=== PATIENT | male | born 1965 | race Caucasian/White ===

== ENCOUNTER → 2017-07-15 | Outpatient (CLI) | payer BC ==
[~2017-07-15] MED LIST: ASPEC325 PO; B-COTAB18 PO; CINN1CAP2 PO; COEN100C3 PO; CRANPOW PO; GING1CAP PO; GLUC1CAP33 PO; OMEG1360 PO
[2017-07-15 18:44] LABS: BASO % 0.1 %; BASO ABS # 0.02 K/uL (0-0.2); EOS % 0.3 %; EOS ABS # 0.04 K/uL (0-0.5); HEMATOCRIT 44.6 % (42-52); HEMOGLOBIN 15.7 g/dL (14.0-18.0); IG# 0.06 K/uL (0.00-0.02); LYMPH % 18.8 %; LYMPH ABS # 2.63 K/uL (1.2-3.4); MEAN CELL VOLUME 94.7 fL (80-100); MEAN CORPUSCULAR HEMOGLOBIN 33.3 pg (25-34); MEAN CORPUSCULAR HGB CONC 35.2 g/dl (32-36); MEAN PLATELET VOLUME 10.7 fL (7.4-10.4); MONO % 7.4 %; MONO ABS # 1.04 K/uL (0.11-0.59); PLATELET COUNT 285 K/uL (130-400); RED CELL DISTRIBUTION WIDTH SD 48.5 fL (36.4-46.3); WHITE BLOOD COUNT 13.99 K/uL (4.8-10.8)
[2017-07-17 01:19] LABS: RAPID PLASMA REAGIN NONREACTIVE (NONREACT)
[2017-07-17 22:32] LABS: ANA SCREEN TC 249X NEGATIVE (NEGATIVE)
== END | disposition home or self-care (01) ==
LOC: C.LAB 18:13
PROVIDERS: ATTEND Physician Assistant
DX: R21 Rash and other nonspecific skin eruption (principal)

== ENCOUNTER 2020-05-03 18:07 | Inpatient (IN) ==
[2020-05-03] MEDS ORDERED: SODIUM CHLORIDE 0.9% 1000ML 1,000 ML IV ONE (18:47)
[2020-05-03 19:27] LABS: Basophils # (auto) 0.05 K/uL (0-0.2); Basophils % (auto) 0.4 %; Eosinophils # (auto) 0.33 K/uL (0-0.5); Eosinophils % (auto) 2.5 %; Hematocrit (blood only) 44.6 % (42-52); Hemoglobin 15.6 g/dL (14.0-18.0); Immature Granulocytes # (auto) 0.15 K/uL (0.00-0.02); Immature Granulocytes % (auto) 1.2 %; Lymphocytes # (auto) 1.71 K/uL (1.2-3.4); Lymphocytes % (auto) 13.2 %; Mean Corpuscular Hemoglobin 33.4 pg (25-34); Mean Corpuscular Volume 95.5 fL (80-100); Mean Platelet Volume 10.8 fL (7.4-10.4); Monocytes # (auto) 1.25 K/uL (0.11-0.59); Monocytes % (auto) 9.6 %; Neutrophils % (auto) 73.1 %; Platelet Count 474 K/uL (130-400); RDW Coefficient of Variation 13.5 % (11.5-14.5); RDW Standard Deviation 47.1 fL (36.4-46.3); Red Blood Count 4.67 M/uL (4.7-6.1); White Blood Count 12.99 K/uL (4.8-10.8)
[2020-05-03 19:38] LABS: Partial Thromboplastin Time 27.1 Seconds (21.0-31.0); Prothrombin Time 10.8 Seconds (9.0-12.0)
[2020-05-03 19:58] LABS: Alanine Aminotransferase 92 U/L (12-78); Albumin Level 2.8 gm/dl (3.4-5.0); Aspartate Aminotransferase 46 U/L (15-37); BUN Creatinine Ratio 11.3 (10-20); Blood Urea Nitrogen 15 mg/dl (7-18); Calcium 8.8 mg/dl (8.5-10.1); Carbon Dioxide 28 mmol/L (21-32); Chloride 108 mmol/L (98-107); Creatinine Clr Calc Pharmacy 77.2 ml/min; Est GFR (African American) 72.4; Est GFR (Non-African American) 62.4; Glucose 109 mg/dl (70-99); Lipase 135 U/L (73-393); Potassium 4.2 mmol/L (3.5-5.1); Sodium 140 mmol/L (136-145)
[2020-05-03 20:04] LABS: Albumin Globulin Ratio 0.6 (0.9-2); Alkaline Phosphatase 123 U/L (45-117); Bilirubin,Total 0.5 mg/dl (0.2-1); Globulin 4.7 gm/dl (2.5-4.0); Influenza A virus by PCR Negative (Neg); Influenza B virus by PCR Negative (Neg); RSV by PCR Negative (Neg); Total Protein 7.5 gm/dl (6.4-8.2); Troponin I < 0.015 ng/ml (0-0.045)
[2020-05-03] MEDS ORDERED: OPTIRAY 320 125ml IV ONE (20:15)
[2020-05-03 20:18] LABS: SARS CoV2 RNA(COVID-19) InHosp POSITIVE (Negative)
--- NOTE | 2020-05-03 20:29 | CT Scan Report ---
CT angio chest PE protocol CT DOSE: 824.46 mGy.cm HISTORY: 54 years-old Male with dyspnea, hypoxia, tachycardia. Acute shortness of breath with hypox ia and tachycardia. COVID Positive. TECHNIQUE: Multiple CTA images of the chest were obtained after the intravenous administration of 120 ml Optiray 320. Coronal and sagittal MIPS were obtained from the axial data set and were submitted for review. All measurements were obtained according to NASCET criteria. A dose lowering technique w as utilized adhering to the principles of ALARA. COMPARISON: None. FINDINGS: CTA: Moderate cardiomegaly. No pericardial effusion. No thoracic aortic aneurysm or dissection. Patency of the imaged great vessels. Pulmonary arterial tree is opacified to the level of the subsegmental bran ches and demonstrates no filling defects to suggest thromboembolic disease. CT CHEST: Unremarkable thyroid. Enlarged paratracheal and hilar lymph nodes measure up to 1.3 cm. Trace pleural effusions. The inferior lung bases are not entirely imaged. Bilateral patchy groundglass and consoli dative opacities are noted within all lobes and segments bilaterally. No overt pulmonary edema. Centr al airways are patent. Hepatic steatosis. No acute process of the imaged upper abdomen. Unremarkable soft tissues. There is no acute fracture. IMPRESSION: 1. Cardiomegaly without evidence of pulmonary emboli. 2. Multilobar distribution of groundglass and consolidative opacities compatible with multifocal pneu monia. 3. Likely reactive mediastinal and hilar adenopathy. 4. Trace pleural effusions. 5. Hepatic steatosis. ACT 112: Negative or not required by law. The above report was generated using voice recognition software. It may contain grammatical, syntax o r spelling errors. Electronically signed by: Vahid Sheridan M.D. 05/03/2020 8:28 PM
[2020-05-03] MEDS ORDERED: DEXAMETHASONE SOD INJ 10 MG/ML VIAL PO ONE (21:00)
[2020-05-03] MEDS ORDERED: DOXYCYCLINE HYCLATE 100 MG CAP PO STA (21:00)
--- NOTE | 2020-05-03 21:40 | Emergency Department Note ---
History of Present Illness General Chief Complaint: Respiratory Problems Stated Complaint: SOB Time Seen by Provider: 05/03/20 18:21 Source: patient Mode of arrival: ambulatory Limitations: no limitations History of Present Illness Provider Complaint: shortness of breath and cough Onset (ago): week(s) (1) HPI Narrative: This 54-year-old male patient presents to the emergency department today for evaluation of shortness of breath. Patient states his son tested positive for COVID-19 on 04/17/2020. His then got sick and tested positive as well. Approximately 1 week ago, he developed body aches, chills, headaches, dry cough. The patient states he began feeling better, then his shortness of breath worsened yesterday. Patient states he is having difficulty ambulating to the bathroom. He borrowed a pulse ox from a neighbor and noted his oxygen dropping into the 80's with minimal ambulation and movement/position changes. He denies any associated pain. No chest pain. No hemoptysis or fever. He does not use oxygen at home. He is not a smoker. He denies any history of COPD or asthma. Patient denies history of PE. No calf pain or swelling. No recent travel. Related Data Home oxygen amount: none Home Medications Medication Instructions Recorded Confirmed Type ascorbic acid (vitamin C) 500 mg 500 mg PO BID tab 10/26/18 05/03/20 History tablet cinnamon bark 500 mg capsule 500 mg PO BID cap 10/27/18 05/03/20 History coenzyme Q10 100 mg capsule 100 mg PO BID cap 10/27/18 05/03/20 History vitamin E succinate 400 unit tablet 400 units PO BID tab 10/27/18 05/03/20 History Salma Root Tab 500 mg PO BID 05/03/20 05/03/20 History diclofenac sodium 75 mg PO BID PRN 05/03/20 05/03/20 History escitalopram oxalate 20 mg PO DAILY 05/03/20 05/03/20 History gabapentin [Neurontin] 600 mg PO HS 05/03/20 05/03/20 History grape seed extract 150 mg PO BID 05/03/20 05/03/20 History lisdexamfetamine [Vyvanse] 60 mg PO DAILY 05/03/20 05/03/20 History vitamin B complex [B Complex] 1 tab PO BID 05/03/20 05/03/20 History Allergies Allergy/AdvReac Type Severity Reaction Status Date / Time codeine AdvReac Unknown GI SYMPTOMS Verified 05/03/20 19:08 Past Med/Surg History Medical History Chronic neck pain Surgical History (Updated 10/26/18 @ 08:11 by Magdiel London) H/O hernia repair History of knee surgery Family History (Updated 10/26/18 @ 08:14 by Magdiel London) Mother Depression Seizures Anxiety Sister Depression Father Hypertension Diabetes Prostate cancer Family/Other Myocardial infarction Social History Smoking Status: Never smoker Hx Alcohol Use: Yes Hx Substance Use: No Communication Ability: Effective Visual Impairment: No Limitations 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: No marital status: Current Living Situation: Spouse and Family current occupational status: employed Feels Safe at Home: Yes Physical Activity Frequency: 1-2 Times per Week Review of Systems A total of 10 systems reviewed and were otherwise negative Physical Exam Vital Signs: Vital Signs - 24 hr 05/03/20 18:12 05/03/20 18:23 05/03/20 18:59 Temperature 36.6 C Temperature Source Temporal Artery Sc an Pulse Rate 122 H 106 H Pulse Rate from Sp O2 Sensor 104 H Pulse Rhythm Respiratory Rate 24 17 Blood Pressure 157/76 H 147/99 H Blood Pressure Yeny n 103 115 Pulse Oximetry 92 88 L 96 Oxygen Delivery Me thod Room Air Room Air Nasal Can nula Nasal Cannula Oxygen Flow Rate 0 2 Sepsis Recent Feve r Within 48 Hours No Sepsis New/Unexpla ined Change in Men jordyn Status N/A Sepsis Action Take n by Nursing No Action Required Oxygen Flow Rate - Titration 2 Pulse Oximetry Pos t Tiitration 95 05/03/20 19:07 05/03/20 19:30 05/03/20 20:00 Temperature Temperature Source Pulse Rate 102 H 95 H 88 Pulse Rate from Sp O2 Sensor 93 H 89 Pulse Rhythm Regular Respiratory Rate 18 16 15 Blood Pressure 160/104 H 158/110 H Blood Pressure Yeny n 122 126 Pulse Oximetry 99 95 96 Oxygen Delivery Me thod Nasal Cannula Nasal Cannula Nasal Cannula Oxygen Flow Rate 2 2 2 Sepsis Recent Feve r Within 48 Hours Sepsis New/Unexpla ined Change in Men jordyn Status Sepsis Action Take n by Nursing Oxygen Flow Rate - Titration Pulse Oximetry Pos t Tiitration 05/03/20 20:30 Temperature Temperature Source Pulse Rate 89 Pulse Rate from Sp O2 Sensor 88 Pulse Rhythm Respiratory Rate 16 Blood Pressure 158/114 H Blood Pressure Yeny n 128 Pulse Oximetry 93 Oxygen Delivery Me thod Nasal Cannula Oxygen Flow Rate 2 Sepsis Recent Feve r Within 48 Hours Sepsis New/Unexpla ined Change in Men jordyn Status Sepsis Action Take n by Nursing Oxygen Flow Rate - Titration Pulse Oximetry Pos t Tiitration Physical Exam: PHYSICAL EXAM: VITALS: Blood Pressure 158/114, P 89, R 16, T 36.6C, O2 sat 88% on RA GENERAL: Well appearing, in no acute distress. Non-diaphoretic, well-developed, well-nourished. SKIN: No rashes, erythema, edema, or bruising. Good cap refill. HEAD: Normocephalic atraumatic. EYES: Conjunctivae without injection, sclerae without icterus. NECK: Supple without nuchal rigidity. No lymphadenopathy. LUNGS: Pt. able to speak in full sentences without difficulty. No apparent distress. No retractions or accessory muscle use. MUSCULOSKELETAL: Full range of motion without joint tenderness in all extremities. Normal gait. NEURO: Patient was alert and oriented to person place and time. No focal neurological deficits. Course Course The patient was seen and evaluated as above. An order was placed for continuous cardiac monitoring. The monitor shows a sinus tachycardia at a rate of 105 bpm. IV access obtained, labs drawn. Patient medicated with IV fluids. Imaging performed and reviewed by myself and radiologist as noted. Labs reviewed by myself. I discussed the findings with the patient via phone due to COVID-19 precautions. Plan to discharge the patient home with home O2 and Covid kit, however after discussion with the human services manager, noted that this is unavailable after hours due to limited ability to obtain home oxygen. [facility] the [facility] Please see his dictation regarding ongoing management of this patient. Administered Medications Discontinued Medications Sodium Chloride (Nss 1000ml) 1,000 mls @ 999 mls/hr IV .Q1H1M ONE Stop: 05/03/20 19:47 Last Infusion: 05/03/20 20:19 Dose: 0 mls/hr Documented by: [id number] Admin: 05/03/20 19:13 Dose: 999 mls/hr Documented by: [id number] Ioversol (Optiray 320 125ml) 120 ml IV ONCE ONE Stop: 05/03/20 20:16 Last Admin: 05/03/20 20:16 Dose: 120 ml Documented by: [id number] Medical Decision Making Differential Diagnosis + acute exacerbation of chronic obstructive airways disease, + congestive heart failure, + community acquired pneumonia, + asthma with exacerbation, + pulmonary embolism, + bronchitis, + pneumothorax, + pleural effusion, + ACS and + aspiration In addition to the above, COVID-19 was considered. Medical Records Attestation: I reviewed the patient's medical records. Home Medications Current Medication List: was personally reviewed by me Laboratory Data Attestation: I reviewed the patient's lab results. Mild leukocytosis of 12.99. No anemia or thrombocytopenia. Platelet count mildly elevated at 474,000. Renal, hepatic function and electrolytes without significant abnormality troponin negative. Lipase 135. Covid testing positive. Influenza, RSV testing negative. Result diagrams: 05/03/20 19:15 05/03/20 19:15 Lab Results 05/03/20 05/03/20 05/03/20 Range/Units 19:15 19:15 19:15 WBC 12.99 H (4.8-10.8) K/uL RBC 4.67 L (4.7-6.1) M/uL Hgb 15.6 (14.0-18.0) g/dL Hct 44.6 (42-52) % MCV 95.5 (80-100) fL MCH 33.4 (25-34) pg MCHC 35.0 (32-36) g/dL RDW Std Deviation 47.1 H (36.4-46.3) fL RDW Coeff of Angela 13.5 (11.5-14.5) % Plt Count 474 H (130-400) K/uL MPV 10.8 H (7.4-10.4) fL Immature Gran % (Auto) 1.2 % Neut % (Auto) 73.1 % Lymph % (Auto) 13.2 % [place] % (Auto) 9.6 % Eos % (Auto) 2.5 % Baso % (Auto) 0.4 % Neut # (Auto) 9.50 H (1.4-6.5) K/uL Lymph # (Auto) 1.71 (1.2-3.4) K/uL [place] # (Auto) 1.25 H (0.11-0.59) K/uL Eos # (Auto) 0.33 (0-0.5) K/uL Baso # (Auto) 0.05 (0-0.2) K/uL Immature Gran # (Auto) 0.15 H (0.00-0.02) K/uL PT 10.8 (9.0-12.0) Seconds INR 1.0 (0.9-1.1) APTT 27.1 (21.0-31.0) Seconds PTT Ratio 1.0 Sodium 140 (136-145) mmol/L Potassium 4.2 (3.5-5.1) mmol/L Chloride 108 H (98-107) mmol/L Carbon Dioxide 28 (21-32) mmol/L Anion Gap 4.0 (3-11) BUN 15 (7-18) mg/dl Creatinine 1.29 (0.6-1.4) mg/dl Est Cr Clr Drug Dosing 77.2 ml/min Est GFR ( Amer) 72.4 Est GFR (Non-Af Amer) 62.4 BUN/Creatinine Ratio 11.3 (10-20) Glucose 109 H (70-99) mg/dl Calcium 8.8 (8.5-10.1) mg/dl Total Bilirubin 0.5 (0.2-1) mg/dl AST 46 H (15-37) U/L ALT 92 H (12-78) U/L Alkaline Phosphatase 123 H (45-117) U/L Troponin I < 0.015 (0-0.045) ng/ml Total Protein 7.5 (6.4-8.2) gm/dl Albumin 2.8 L (3.4-5.0) gm/dl Globulin 4.7 H (2.5-4.0) gm/dl Albumin/Globulin Ratio 0.6 L (0.9-2) Lipase 135 (73-393) U/L COVID-19 Eval Order SARS-CoV-2 (PCR) (Negative) Influenza Type A (PCR) (Neg) Influenza Type B (PCR) (Neg) RSV (RT-PCR) (Neg) 05/03/20 05/03/20 Range/Units 19:15 19:15 WBC (4.8-10.8) K/uL RBC (4.7-6.1) M/uL Hgb (14.0-18.0) g/dL Hct (42-52) % MCV (80-100) fL MCH (25-34) pg MCHC (32-36) g/dL RDW Std Deviation (36.4-46.3) fL RDW Coeff of Angela (11.5-14.5) % Plt Count (130-400) K/uL MPV (7.4-10.4) fL Immature Gran % (Auto) % Neut % (Auto) % Lymph % (Auto) % [place] % (Auto) % Eos % (Auto) % Baso % (Auto) % Neut # (Auto) (1.4-6.5) K/uL Lymph # (Auto) (1.2-3.4) K/uL [place] # (Auto) (0.11-0.59) K/uL Eos # (Auto) (0-0.5) K/uL Baso # (Auto) (0-0.2) K/uL Immature Gran # (Auto) (0.00-0.02) K/uL PT (9.0-12.0) Seconds INR (0.9-1.1) APTT (21.0-31.0) Seconds PTT Ratio Sodium (136-145) mmol/L Potassium (3.5-5.1) mmol/L Chloride (98-107) mmol/L Carbon Dioxide (21-32) mmol/L Anion Gap (3-11) BUN (7-18) mg/dl Creatinine (0.6-1.4) mg/dl Est Cr Clr Drug Dosing ml/min Est GFR ( Amer) Est GFR (Non-Af Amer) BUN/Creatinine Ratio (10-20) Glucose (70-99) mg/dl Calcium (8.5-10.1) mg/dl Total Bilirubin (0.2-1) mg/dl AST (15-37) U/L ALT (12-78) U/L Alkaline Phosphatase (45-117) U/L Troponin I (0-0.045) ng/ml Total Protein (6.4-8.2) gm/dl Albumin (3.4-5.0) gm/dl Globulin (2.5-4.0) gm/dl Albumin/Globulin Ratio (0.9-2) Lipase (73-393) U/L COVID-19 Eval Order CovFluRsv at [facility] SARS-CoV-2 (PCR) POSITIVE A* (Negative) Influenza Type A (PCR) Negative (Neg) Influenza Type B (PCR) Negative (Neg) RSV (RT-PCR) Negative (Neg) Imaging Data Radiologist's Impression: CT angio chest PE protocol CT DOSE: 824.46 mGy.cm HISTORY: 54 years-old Male with dyspnea, hypoxia, tachycardia. Acute shortness of breath with hypoxia and tachycardia. COVID Positive. TECHNIQUE: Multiple CTA images of the chest were obtained after the intravenous administration of 120 ml Optiray 320. Coronal and sagittal MIPS were obtained from the axial data set and were submitted for review. All measurements were obtained according to NASCET criteria. A dose lowering technique was utilized adhering to the principles of ALARA. COMPARISON: None. FINDINGS: CTA: Moderate cardiomegaly. No pericardial effusion. No thoracic aortic aneurysm or dissection. Patency of the imaged great vessels. Pulmonary arterial tree is opacified to the level of the subsegmental branches and demonstrates no filling defects to suggest thromboembolic disease. CT CHEST: Unremarkable thyroid. Enlarged paratracheal and hilar lymph nodes measure up to 1.3 cm. Trace pleural effusions. The inferior lung bases are not entirely imaged. Bilateral patchy groundglass and consolidative opacities are noted within all lobes and segments bilaterally. No overt pulmonary edema. Central airways are patent. Hepatic steatosis. No acute process of the imaged upper abdomen. Unremarkable soft tissues. There is no acute fracture. IMPRESSION: 1. Cardiomegaly without evidence of pulmonary emboli. 2. Multilobar distribution of groundglass and consolidative opacities compatible with multifocal pneumonia. 3. Likely reactive mediastinal and hilar adenopathy. 4. Trace pleural effusions. 5. Hepatic steatosis. ACT 112: Negative or not required by law. The above report was generated using voice recognition software. It may contain grammatical, syntax or spelling errors. Electronically signed by: Vahid Sheridan M.D. 05/03/2020 8:28 PM ECG Data Attestation: I personally reviewed and interpreted this ECG as follows: Prior ECG tracings: available for review (02/15/1996) Interpretation: Sinus tachycardia with ventricular rate of [address] elevation or depression. No T wave inversion. When compared to previous EKG, PVCs no longer present. Blood Pressure Blood Pressure Findings: Elevated blood pressure Blood Pressure Disposition: further management by hospitalist MDM Narrative This 54 year old male patient presents to the emergency department today for evaluation of shortness of breath. His family members have tested positive for COVID-19. He developed symptoms approximately 1 week ago and shortness of breath significantly worsened over the past few days. The patient generally appears well, but is requiring oxygen with only minimal activity and position changes. He does have a mild leukocytosis. CT imaging to rule out PE completed and negative for PE, though with multilobar distribution of groundglass and consolidative opacities, consistent with multifocal pneumonia and COVID-19. COVID-19 testing is positive. We did discuss the potential for discharge home with home oxygen, Decadron, and doxycycline in case of secondary bacterial infection, though were unable to obtain oxygen for the patient at home. He will be admitted to the medicine service for ongoing management of his shortness of breath, hypoxia, and Covid pneumonia. Please see hospitalist dictation regarding ongoing management care of this patient. The chart was completed utilizing [employer] Speech voice recognition software. Grammatical errors, random word insertions, pronoun errors, and incomplete sentences are an occasional consequence of this system due to software limitations, ambient noise, and hardware issues. Any formal questions or con cerns about the content, text, or information contained within the body of this dictation should be directly addressed to the provider for clarification. Impression & Plan COVID-19, Pneumonia, Hypoxia Discharge Plan Visit Data Chief Complaint: Respiratory Problems Stated Complaint: SOB ED Provider: Daren Francis ED Midlevel Provider: Elaine Moss Discharge Problem: COVID-19, Pneumonia, Hypoxia Patient Disposition: Admitted As Inpatient Forms Stand Alone Forms: [facility] Emergency Department, Important Visit Information Prescriptions Prescriptions: No Action ascorbic acid (vitamin C) 500 mg tablet 500 mg PO BID RF: 0 coenzyme Q10 100 mg capsule 100 mg PO BID RF: 0 vitamin E succinate 400 unit tablet 400 units PO BID RF: 0 cinnamon bark [Cinnamon] 500 mg capsule 500 mg PO BID RF: 0 B Complex Tablet Extended Release 1 tab PO BID RF: 0 Salma Root Tab 500 mg PO BID RF: 0 gabapentin [Neurontin] 300 mg capsule 600 mg PO HS RF: 0 diclofenac sodium 75 mg tablet,delayed release (DR/EC) 75 mg PO BID PRN (Reason: Pain) RF: 0 grape seed extract 50 mg Capsule 150 mg PO BID RF: 0 escitalopram oxalate 20 mg tablet 20 mg PO DAILY RF: 0 Vyvanse 60 mg capsule 60 mg PO DAILY RF: 0 Referrals Referrals: PCP,NO [Primary Care Provider] -
--- NOTE | 2020-05-03 23:05 | History & Physical Report ---
Date of Service May 03, 2020 Assessment & Plan (1) Pneumonia due to COVID-19 virus: Multifocal pneumonia due to COVID-19 virus with hypoxia- Likely has an element of secondary bacterial infection. Dexamethasone 6 mg IV every morning Ventolin HFA 2 puffs 4 times daily, and every 2 hours as needed Remdesivir IV per protocol Ceftriaxone 2g IV daily Azithromycin 500 mg IV daily Nasal cannula oxygen, titrate to keep pulse ox 94 to 95% Patient with history of 5 previous cases of bacterial pneumonia. Present on Admission?: Yes (2) Hypoxia: See above Present on Admission?: Yes (3) Multifocal pneumonia: See above Present on Admission?: Yes (4) Hepatic steatosis: AST 46 and ALT 92 upon admission. Follow serially Present on Admission?: Yes (5) Anxiety and depression: Continue Lexapro 20 mg p.o. daily, Vyvanse, and gabapentin 600 mg at bedtime Present on Admission?: Yes History of Present Illness Chief Complaint: The patient presents to the emergency department with complaint of generalized fatigue and weakness, body aches, chills, headaches and worsening of his chronic dry cough worsening over the past 4 to 5 days. Primary Care Provider: NO PCP The patient is a 54-year-old male with a past medical history including depression, and anxiety, who presents with the symptoms above. He reports that his son was initially tested positive for COVID-19 on 04/17/2020, his developed symptoms and tested positive several days later, and then he developed symptoms as noted above. Work-up in the emergency department included the following abnormal labor atories: AST 46, ALT 92, albumin 2.8, WBC 12.99, platelets 474, and COVID-[address] angiography was significant for multifocal pneumonia and fatty liver. Patient was noted to be hypoxic, with room air pulse ox 88% upon arrival. Allergies Allergy/AdvReac Type Severity Reaction Status Date / Time codeine AdvReac Unknown GI SYMPTOMS Verified 05/03/20 19:08 Home Medications Medication Instructions Recorded Confirmed Type ascorbic acid (vitamin C) 500 mg 500 mg PO BID tab 10/26/18 05/03/20 History tablet cinnamon bark 500 mg capsule 500 mg PO BID cap 10/27/18 05/03/20 History coenzyme Q10 100 mg capsule 100 mg PO BID cap 10/27/18 05/03/20 History vitamin E succinate 400 unit tablet 400 units PO BID tab 10/27/18 05/03/20 History Salma Root Tab 500 mg PO BID 05/03/20 05/03/20 History diclofenac sodium 75 mg PO BID PRN 05/03/20 05/03/20 History escitalopram oxalate 20 mg PO DAILY 05/03/20 05/03/20 History gabapentin [Neurontin] 600 mg PO HS 05/03/20 05/03/20 History grape seed extract 150 mg PO BID 05/03/20 05/03/20 History lisdexamfetamine [Vyvanse] 60 mg PO DAILY 05/03/20 05/03/20 History vitamin B complex [B Complex] 1 tab PO BID 05/03/20 05/03/20 History Past Med/Surg History Medical History Chronic neck pain Surgical History (Updated 10/26/18 @ 08:11 by Magdiel London) H/O hernia repair History of knee surgery Family History (Updated 10/26/18 @ 08:14 by Magdiel London) Mother Depression Seizures Anxiety Sister Depression Father Hypertension Diabetes Prostate cancer Family/Other Myocardial infarction Social History Smoking Status: Never smoker Do You Dip or Chew Tobacco: No; Hx Alcohol Use: No Hx Substance Use: No Preferred Language: Gambian Communication Ability: Effective Visual Impairment: No Limitations Retouching Operator Required: No Beliefs That Will Affect Care: None marital status: Current Living Situation: Spouse current occupational status: employed Feels Safe at Home: Yes Physical Activity Frequency: 1-2 Times per Week Assistive Devices: CPAP and Glasses Review of Systems Review of Systems: The patient denies chest pain, palpitations, lower extremity swelling, sweats, weight change, nausea, vomiting, diarrhea , constipation, abdominal pain, pelvic pain, blood in urine or stool, dysuria, urinary frequency or urgency, lightheadedness, dizziness, memory loss, loss of consciousness, rash, abnormal bruising or bleeding, imbalance, focal weakness, numbness or tingling in arms or legs, back or neck pain, or night sweats. The review of systems is otherwise negative other than for that already noted above, and at least 10 systems have been reviewed. Physical Exam Physical Exam: The patient is awake, alert and oriented 3, well developed and well nourished, normocephalic and atraumatic, lying in bed and in no acute distress. HEENT--PERRL, EOMI, mucous membranes and oropharynx normal. Neck--supple. No JVD. No bruits. Thyroid normal, trachea midline, no adenopathy. Heart--normal S1 and S2. No murmurs, rubs or gallops. Lungs--coarse breath sounds bilaterally. No respiratory distress, no accessory muscle use. Abdomen--normal bowel sounds and soft. Nontender. Nondistended, no hernias or masses, no organomegaly. Extremities--no cyanosis or clubbing. No edema. Dermatologic--normal skin turgor, normal color, no abnormal lymph nodes, no rash. Neurologic--cranial nerves II through XII grossly intact. Rheumatologic--normal range of motion. Psychiatric--normal affect. Results & Data Results & Data ([facility]) Vital Signs (Past 12 Hours) Vital Signs Temp Pulse Resp BP Pulse Ox 05/03/20 22:30 89 16 164/116 H 97 05/03/20 22:00 94 H 16 169/119 H 95 05/03/20 21:31 87 17 95 05/03/20 21:30 87 15 140/104 H 96 05/03/20 21:00 91 H 15 147/102 H 91 05/03/20 20:54 90 16 146/101 H 91 05/03/20 20:30 89 16 158/114 H 93 05/03/20 20:00 88 15 158/110 H 96 05/03/20 19:30 95 H 16 160/104 H 95 05/03/20 19:07 102 H 18 99 05/03/20 18:59 106 H 17 147/99 H 96 05/03/20 18:23 88 L 05/03/20 18:12 97.9 F 122 H 24 157/76 H 92 Laboratory Results Laboratory Results WBC 12.99 K/uL (4.8-10.8) H 05/03/20 19:15 RBC 4.67 M/uL (4.7-6.1) L 05/03/20 19:15 Hgb 15.6 g/dL (14.0-18.0) 05/03/20 19:15 Hct 44.6 % (42-52) 05/03/20 19:15 MCV 95.5 fL (80-100) 05/03/20 19:15 MCH 33.4 pg (25-34) 05/03/20 19:15 MCHC 35.0 g/dL (32-36) 05/03/20 19:15 RDW Std Deviation 47.1 fL (36.4-46.3) H 05/03/20 19:15 RDW Coeff of Angela 13.5 % (11.5-14.5) 05/03/20 19:15 Plt Count 474 K/uL (130-400) H 05/03/20 19:15 MPV 10.8 fL (7.4-10.4) H 05/03/20 19:15 Immature Gran % (Auto) 1.2 % 05/03/20 19:15 Neut % (Auto) 73.1 % 05/03/20 19:15 Lymph % (Auto) 13.2 % 05/03/20 19:15 Benton % (Auto) 9.6 % 05/03/20 19:15 Eos % (Auto) 2.5 % 05/03/20 19:15 Baso % (Auto) 0.4 % 05/03/20 19:15 Neut # (Auto) 9.50 K/uL (1.4-6.5) H 05/03/20 19:15 Lymph # (Auto) 1.71 K/uL (1.2-3.4) 05/03/20 19:15 Benton # (Auto) 1.25 K/uL (0.11-0.59) H 05/03/20 19:15 Eos # (Auto) 0.33 K/uL (0-0.5) 05/03/20 19:15 Baso # (Auto) 0.05 K/uL (0-0.2) 05/03/20 19:15 Immature Gran # (Auto) 0.15 K/uL (0.00-0.02) H 05/03/20 19:15 PT 10.8 Seconds (9.0-12.0) 05/03/20 19:15 INR 1.0 (0.9-1.1) 05/03/20 19:15 APTT 27.1 Seconds (21.0-31.0) 05/03/20 19:15 PTT Ratio 1.0 05/03/20 19:15 Sodium 140 mmol/L (136-145) 05/03/20 19:15 Potassium 4.2 mmol/L (3.5-5.1) 05/03/20 19:15 Chloride 108 mmol/L (98-107) H 05/03/20 19:15 Carbon Dioxide 28 mmol/L (21-32) 05/03/20 19:15 Anion Gap 4.0 (3-11) 05/03/20 19:15 BUN 15 mg/dl (7-18) 05/03/20 19:15 Creatinine 1.29 mg/dl (0.6-1.4) 05/03/20 19:15 Est Cr Clr Drug Dosing 77.2 ml/min 05/03/20 19:15 Est GFR ( Amer) 72.4 05/03/20 19:15 Est GFR (Non-Af Amer) 62.4 05/03/20 19:15 BUN/Creatinine Ratio 11.3 (10-20) 05/03/20 19:15 Glucose 109 mg/dl (70-99) H 05/03/20 19:15 Calcium 8.8 mg/dl (8.5-10.1) 05/03/20 19:15 Total Bilirubin 0.5 mg/dl (0.2-1) 05/03/20 19:15 AST 46 U/L (15-37) H 05/03/20 19:15 ALT 92 U/L (12-78) H 05/03/20 19:15 Alkaline Phosphatase 123 U/L (45-117) H 05/03/20 19:15 Troponin I < 0.015 ng/ml (0-0.045) 05/03/20 19:15 Total Protein 7.5 gm/dl (6.4-8.2) 05/03/20 19:15 Albumin 2.8 gm/dl (3.4-5.0) L 05/03/20 19:15 Globulin 4.7 gm/dl (2.5-4.0) H 05/03/20 19:15 Albumin/Globulin Ratio 0.6 (0.9-2) L 05/03/20 19:15 Lipase 135 U/L (73-393) 05/03/20 19:15 COVID-19 Eval Order CovFluRsv at [facility] 05/03/20 19:15 SARS-CoV-2 (PCR) POSITIVE (Negative) A* 05/03/20 19:15 Influenza Type A (PCR) Negative (Neg) 05/03/20 19:15 Influenza Type B (PCR) Negative (Neg) 05/03/20 19:15 RSV (RT-PCR) Negative (Neg) 05/03/20 19:15 Diagnostic Findings [facility], [id number] CT Scan Report Patient: CACHORRO MOREJON Date: 05/03/20MR#: [id number]: 51 JUSTIN MCLAUGHLINAcckaty ID:[id number]: Date: 1965ty Zip: [place] [id number]: 54Location: EDSex: MRoom/Bed:Att Phy:Diagnosis: SOBPri Phy: PCP,NOService Date: 05/03/20Fa Phy:Interpreting Phy: Kyree SheridanAdmit Phy: Ordering Phy: Elaine Moss PA-C cc: ~ CT angio chest PE protocol CT DOSE: 824.46 mGy.cm HISTORY: 54 years-old Male with dyspnea, hypoxia, tachycardia. Acute shortness of breath with hypoxia and tachycardia. COVID Positive. TECHNIQUE: Multiple CTA images of the chest were obtained after the intravenous administration of 120 ml Optiray 320. Coronal and sagittal MIPS were obtained from the axial data set and were submitted for review. All measurements were obtained according to NASCET criteria. A dose lowering technique was utilized adhering to the principles of ALARA. COMPARISON: None. FINDINGS: CTA: Moderate cardiomegaly. No pericardial effusion. No thoracic aortic aneurysm or dissection. Patency of the imaged great vessels. Pulmonary arterial tree is opacified to the level of the subsegmental branches and demonstrates no filling defects to suggest thromboembolic disease. CT CHEST: Unremarkable thyroid. Enlarged paratracheal and hilar lymph nodes measure up to 1.3 cm. Trace pleural effusions. The inferior lung bases are not entirely imaged. Bilateral patchy groundglass and consolidative opacities are noted within all lobes and segments bilaterally. No overt pulmonary edema. Central airways are patent. Hepatic steatosis. No acute process of the imaged upper abdomen. Unremarkable soft tissues. There is no acute fracture. IMPRESSION: 1. Cardiomegaly without evidence of pulmonary emboli. 2. Multilobar distribution of groundglass and consolidative opacities compatible with multifocal pneumonia. 3. Likely reactive mediastinal and hilar adenopathy. 4. Trace pleural effusions. 5. Hepatic steatosis. ACT 112: Negative or not required by law. The above report was generated using voice recognition software. It may contain grammatical, syntax or spelling errors. Electronically signed by: Vahid Sheridan M.D. 05/03/2020 8:28 PM Dictated: 05/03/202021Transcribed: 05/03/202021 Code Status & VTE Plan Code Status Full code VTE Prophylaxis Plan VTE Prophylaxis will be ordered: Yes PG Care Time/CCT Total # of Minutes Spent Total Time Spent with Patient: Total time spent is greater than 50% in coordination of care (as documented) at patient's floor/unit and/or counseling patient: Coding Level of Care Code 58019 Initial Inpt Care Lvl 3 Diagnoses Pneumonia due to COVID-19 virus U07.1; J12.82 Hypoxia R09.02 Multifocal pneumonia J18.9 Hepatic steatosis K76.0 Anxiety and depression F41.9; F32.9
[2020-05-04] MEDS ORDERED: DEXAMETHASONE SOD INJ 10 MG/ML VIAL IV ONE (00:36)
[2020-05-04] MEDS ORDERED: NON-FORMULARY MEDICATION (Coenzyme Q10 100 mg capsule) PO SCH (00:36)
[2020-05-04] MEDS ORDERED: ONDANSETRON INJ 2 MG/ML 2 ML VIAL IV PRN (00:36)
[2020-05-04] MEDS ORDERED: ACETAMINOPHEN 325 MG TAB PO PRN (00:36)
[2020-05-04] MEDS ORDERED: dexAMETHasone 6 MG in SYRINGE 0 ML IV ONE (01:30)
[2020-05-04] MEDS ORDERED: REMDESIVIR 200 MG in SODIUM CHLORIDE 0.9% 210 ML IV ONE (01:30)
[2020-05-04] MEDS: ASCORBIC ACID 500 MG TAB PO SCH ×3 (02:01→20:15)
[2020-05-04] MEDS: SODIUM CHLORIDE 0.9% 10ML FLUSH IV SCH (02:02)
[2020-05-04 03:49] LABS: Appearance Urine Clear (Clear); Bilirubin Urine Negative (Negative); Blood Urine Negative (Negative); Color Urine Yellow; Glucose Urine UA Negative (Negative); Ketones Urine Trace (Negative); Leukocyte Esterase Urine Negative (Negative); Nitrite Urine Negative (Negative); Protein Urine Negative (Negative); Specific Gravity Urine > 1.045 (1.000-1.030); Urobilinogen Urine Negative (Negative); pH Urine 5.5 (4.5-7.5)
[2020-05-04] MEDS: ALBUTEROL HFA 8 GM INHALER INH SCH ×4 (07:21→19:24)
[2020-05-04] MEDS: cefTRIAXone SODIUM 2,000 MG in DEXTROSE 5% 50 ML IV SCH (08:54)
[2020-05-04] MEDS: dexAMETHasone 6 MG in SYRINGE 0 ML IV SCH (08:57)
[2020-05-04] MEDS: VITAMIN B COMPLEX TAB PO SCH ×2 (08:58→20:15)
[2020-05-04] MEDS ORDERED: ENOXAPARIN INJ 60 MG/0.6 ML SYR SQ SCH (09:00)
[2020-05-04] MEDS ORDERED: ESCITALOPRAM OXALATE 20 MG TAB PO SCH (09:00)
[2020-05-04] MEDS: AZITHROMYCIN 500 MG in DEXTROSE 5% 250 ML IV SCH (09:04)
[2020-05-04] MEDS ORDERED: Nursing to Pharmacy Communication SCH (09:30)
--- NOTE | 2020-05-04 16:07 | Hospitalist Progress Note ---
Date of Service May 04, 2020 Assessment & Plan (1) Pneumonia due to COVID-19 virus: Multifocal pneumonia due to COVID-19 virus with hypoxia. Likely has an element of secondary bacterial infection. First symptoms were ~04/24/2020. - Continue dexamethasone 6 mg IV every morning (End date: 05/12/2020). - Continue remdesivir IV per protocol - Defer convalescent plasma given 10 days since symptom-onset - Continue ceftriaxone & azithromycin - Nasal cannula oxygen, titrate to keep pulse ox 94 to 95% -> Presently down to 2L NC. - MRSA swab (2) Hepatic steatosis: Likely Covid hepatitis. AST 46 and ALT 92 upon admission. - Follow serially (3) Anxiety and depression: No overt symptoms at present. - Continue Lexapro 20 mg p.o. daily, Vyvanse, and gabapentin 600 mg at bedtime (4) DVT prophylaxis: Lovenox 40 mg SQ daily Admission and Anticipated Discharge Date Admission Date: May 03, 2020 Subjective Still some cough, but less shortness of breath. Reports no fevers/chills, chest pain, shortness of breath, abdominal pain, nausea, or vomiting. Physical Exam Constitutional: WD/WN, vitals as above Eyes: EOM intact bilaterally; no conjunctival abnormality ENMT: external ear and nose normal, oropharynx normal Neck: trachea midline, no thyromegaly normal visual inspection Respiratory: normal respiratory effort, lungs clear to auscultation no respiratory distress Cardiovascular: RRR, no murmur, no edema Gastrointestinal (Abdomen): Inspection/Auscultation: abdomen normal to inspection; abdomen not distended Musculoskeletal: no cyanosis or clubbing, extremities motor strength 5/5 Skin: no rashes, warm and dry Neurologic: moves all extremities and awake Psychiatric: Orientation: alert, oriented to person and cooperative Results & Data Results & Data ([facility]) Vital Signs (Past 12 Hours) Vital Signs Temp Pulse Pulse Resp BP BP Pulse Ox 05/04/20 15:35 88 18 92 05/04/20 11:55 37.0 C 93 H 18 143/90 H 95 05/04/20 11:27 81 20 93 05/04/20 10:18 67 05/04/20 08:00 37.0 C 80 18 134/85 95 05/04/20 07:21 72 20 95 PG Care Time/CCT Total # of Minutes Spent Total Time Spent with Patient: Total time spent is greater than 50% in c oordination of care (as documented) at patient's floor/unit and/or counseling patient: Coding Level of Care Code 36097 Subseq Hosp Care Lvl 2 Diagnoses Pneumonia due to COVID-19 virus U07.1; J12.82 Hepatic steatosis K76.0 Anxiety and depression F41.9; F32.9 DVT prophylaxis Z29.9
[2020-05-04] MEDS: ESCITALOPRAM OXALATE 20 MG TAB PO SCH (20:15)
[2020-05-04] MEDS: GABAPENTIN 300 MG CAP PO SCH (20:15)
[2020-05-04] MEDS: REMDESIVIR 100 MG in SODIUM CHLORIDE 0.9% 230 ML IV SCH (20:15)
[2020-05-05] MEDS: SODIUM CHLORIDE 0.9% 10ML FLUSH IV SCH (01:51)
[2020-05-05 06:17] LABS: Hematocrit (blood only) 41.2 % (42-52); Mean Corpuscular Hemoglobin 32.6 pg (25-34); Mean Corpuscular Volume 95.8 fL (80-100); Mean Platelet Volume 10.7 fL (7.4-10.4); Platelet Count 547 K/uL (130-400); RDW Coefficient of Variation 13.7 % (11.5-14.5); RDW Standard Deviation 47.6 fL (36.4-46.3); White Blood Count 13.69 K/uL (4.8-10.8)
--- NOTE | 2020-05-05 07:01 | Electrocardiogram Report ---
Test Reason : Blood Pressure : / mmHG Vent. Rate : 101 BPM Atrial Rate : 101 BPM P-R Int : 134 ms QRS Dur : 074 ms QT Int : 330 ms P-R-T Axes : 040 043 028 degrees QTc Int : 427 ms Sinus tachycardia Otherwise normal ECG When compared with ECG of 15-FEB-1996 11:25, Premature ventricular complexes are no longer Present T wave amplitude has decreased in Anterior leads Confirmed by Eder Aaron ([id number]) on 05/05/2020 7:00:49 AM Referred By: REFERRED SELF Confirmed By:Eder Aaron
[2020-05-05 07:19] LABS: Albumin Globulin Ratio 0.6 (0.9-2); Albumin Level 2.6 gm/dl (3.4-5.0); BUN Creatinine Ratio 19.8 (10-20); Bilirubin,Total 0.4 mg/dl (0.2-1); Calcium 8.7 mg/dl (8.5-10.1); Creatinine Clr Calc Pharmacy 108.3 ml/min; Est GFR (African American) 108.9; Globulin 4.2 gm/dl (2.5-4.0); Magnesium 2.4 mg/dl (1.8-2.4); Potassium 4.5 mmol/L (3.5-5.1); Total Protein 6.8 gm/dl (6.4-8.2)
[2020-05-05] MEDS: ALBUTEROL HFA 8 GM INHALER INH SCH ×3 (08:11→16:00)
[2020-05-05] MEDS: cefTRIAXone SODIUM 2,000 MG in DEXTROSE 5% 50 ML IV SCH (08:53)
[2020-05-05] MEDS: ASCORBIC ACID 500 MG TAB PO SCH ×2 (08:55→20:10)
[2020-05-05] MEDS: dexAMETHasone 6 MG in SYRINGE 0 ML IV SCH (08:55)
[2020-05-05] MEDS: VITAMIN B COMPLEX TAB PO SCH ×2 (08:55→20:10)
[2020-05-05] MEDS: AZITHROMYCIN 500 MG in DEXTROSE 5% 250 ML IV SCH (09:30)
[2020-05-05] MEDS: ENOXAPARIN INJ 40 MG/0.4 ML SYR SQ SCH (09:31)
--- NOTE | 2020-05-05 11:14 | Hospitalist Progress Note ---
Date of Service May 05, 2020 Assessment & Plan (1) Pneumonia due to COVID-19 virus: Multifocal pneumonia due to COVID-19 virus with hypoxia. Likely has an element of secondary bacterial infection. First symptoms were ~04/24/2020. - Continue dexamethasone 6 mg IV every morning (End date: 05/12/2020). - Continue remdesivir IV per protocol - Defer convalescent plasma given 10 days since symptom-onset - Continue ceftriaxone & azithromycin - Nasal cannula oxygen, titrate to keep pulse ox 94 to 95% -> Presently down to 2L NC. (2) Polycythemia: Plt up to 547 on 05/05. Likely reactive from Covid/sickness. - On DVT ppx - Monitor (3) Hepatic steatosis: Likely Covid hepatitis. AST 46 and ALT 92 upon admission. - Follow serially -> Normalized today. (4) Anxiety and depression: No overt symptoms at present. - Continue Lexapro 20 mg p.o. daily, Vyvanse, and gabapentin 600 mg at bedtime (5) DVT prophylaxis: Lovenox 40 mg SQ daily Admission and Anticipated Discharge Date Admission Date: May 03, 2020 Subjective Somewhat better today. No major changes. Still with some cough and shortness of breath. Reports no fevers/chills, chest pain, abdominal pain, nausea, or vomiting. Physical Exam Constitutional: WD/WN, vitals as above Eyes: EOM intact bilaterally; no conjunctival abnormality ENMT: external ear and nose normal, oropharynx normal Neck: trachea midline, no thyromegaly normal visual inspection Respiratory: normal respiratory effort, lungs clear to auscultation no respiratory distress Cardiovascular: RRR, no murmur, no edema Gastrointestinal (Abdomen): Inspection/Auscultation: abdomen normal to inspection; abdomen not distended Musculoskeletal: no cyanosis or clubbing, extremities motor strength 5/5 Skin: no rashes, warm and dry Neurologic: moves all extremities and awake Psychiatric: Orientation: alert, oriented to person and cooperative Results & Data Results & Data ([facility]) Vital Signs (Past 12 Hours) Vital Signs Temp Pulse Resp BP Pulse Ox 05/05/20 09:52 92 05/05/20 08:31 36.8 C 82 20 151/96 H 91 05/05/20 08:11 87 18 91 05/05/20 00:00 36.5 C 85 16 155/85 H 96 PG Care Time/CCT Total # of Minutes Spent Total Time Spent with Patient: Total time spent is greater than 50% in coordination of care (as documented) at patient's floor/unit and/or counseling patient: Coding Level of Care Code 01807 Subseq Hosp Care Lvl 3 Diagnoses Pneumonia due to COVID-19 virus U07.1; J12.82 Polycythemia D75.1 Hepatic steatosis K76.0 Anxiety and depression F41.9; F32.9 DVT prophylaxis Z29.9
[2020-05-05] MEDS ORDERED: BENZONATATE 100 MG CAPSULE PO PRN (14:08)
[2020-05-05] MEDS ORDERED: ALBUTEROL HFA 8 GM INHALER INH PRN (17:44)
[2020-05-05] MEDS: REMDESIVIR 100 MG in SODIUM CHLORIDE 0.9% 230 ML IV SCH (20:09)
[2020-05-05] MEDS: GABAPENTIN 300 MG CAP PO SCH (20:09)
[2020-05-05] MEDS: ESCITALOPRAM OXALATE 20 MG TAB PO SCH (20:09)
[2020-05-05] MEDS ORDERED: Nursing to Pharmacy Communication SCH (23:00)
[2020-05-06] MEDS: SODIUM CHLORIDE 0.9% 10ML FLUSH IV SCH ×2 (00:53→21:43)
[2020-05-06 07:54] LABS: Hemoglobin 14.7 g/dL (14.0-18.0); Mean Corpuscular Hemoglobin 32.9 pg (25-34); Mean Corpuscular Hgb Conc 34.2 g/dL (32-36); Mean Corpuscular Volume 96.2 fL (80-100); Mean Platelet Volume 10.4 fL (7.4-10.4); Platelet Count 618 K/uL (130-400); RDW Coefficient of Variation 13.7 % (11.5-14.5); RDW Standard Deviation 48.5 fL (36.4-46.3); Red Blood Count 4.47 M/uL (4.7-6.1); White Blood Count 12.82 K/uL (4.8-10.8)
[2020-05-06] MEDS: dexAMETHasone 6 MG in SYRINGE 0 ML IV SCH (08:20)
[2020-05-06] MEDS: ASCORBIC ACID 500 MG TAB PO SCH ×2 (08:21→21:42)
[2020-05-06] MEDS: cefTRIAXone SODIUM 2,000 MG in DEXTROSE 5% 50 ML IV SCH (08:21)
[2020-05-06] MEDS: ENOXAPARIN INJ 40 MG/0.4 ML SYR SQ SCH (08:21)
[2020-05-06] MEDS: VITAMIN B COMPLEX TAB PO SCH ×2 (08:22→21:41)
[2020-05-06 08:27] LABS: BUN Creatinine Ratio 18.3 (10-20); Calcium 9.1 mg/dl (8.5-10.1); Creatinine Clr Calc Pharmacy 96.8 ml/min; Magnesium 2.3 mg/dl (1.8-2.4); Potassium 3.9 mmol/L (3.5-5.1)
[2020-05-06] MEDS: AZITHROMYCIN 500 MG in DEXTROSE 5% 250 ML IV SCH (09:42)
--- NOTE | 2020-05-06 15:06 | Hospitalist Progress Note ---
Date of Service May 06, 2020 Assessment & Plan (1) Pneumonia due to COVID-19 virus: Multifocal pneumonia due to COVID-19 virus with hypoxia. Likely has an element of secondary bacterial infection. First symptoms were ~04/24/2020. - Continue dexamethasone 6 mg IV every morning (End date: 05/12/2020). - Continue remdesivir IV per protocol - Defer convalescent plasma given 10 days since symptom-onset - Continue ceftriaxone - Finished azithromycin on 05/06 - Nasal cannula oxygen, titrate to keep pulse ox 94 to 95% -> Presently down to 2L NC, but he did drop to 83% when he walked on room air. Hoping to wean him down to room air before discharge, but may or may not be possible. Presently not worsening, which is encouraging. (2) Polycythemia: Plt up to 547 on 05/05. Likely reactive from Covid/sickness. - On DVT ppx - Monitor (3) Hepatic steatosis: Likely Covid hepatitis. AST 46 and ALT 92 upon admission. - Follow serially -> Normalized by 05/05. (4) Anxiety and depression: No overt symptoms at present. - Continue Lexapro 20 mg p.o. daily, Vyvanse (not getting due to not being on formulary), and gabapentin 600 mg at bedtime (5) DVT prophylaxis: Lovenox 40 mg SQ daily - [place] [employer] recommends normal VTE ppx for Covid patients who are non-ICU status. Admission and Anticipated Discharge Date Admission Date: May 03, 2020 Subjective Doing well today. Still having cough and some shortness of breath. Reports no fevers/chills, chest pain, abdominal pain, nausea, or vomiting. Physical Exam Constitutional: WD/WN, vitals as above Eyes: EOM intact bilaterally; no conjunctival abnormality ENMT: external ear and nose normal, oropharynx normal Neck: trachea midline, no thyromegaly normal visual inspection Respiratory: normal respiratory effort, lungs clear to auscultation no respiratory distress Cardiovascular: RRR, no murmur, no edema Gastrointestinal (Abdomen): Inspection/Auscultation: abdomen normal to inspection; abdomen not distended Musculoskeletal: no cyanosis or clubbing, extremities motor strength 5/5 Skin: no rashes, warm and dry Neurologic: moves all extremities and awake Psychiatric: Orientation: alert, oriented to person and cooperative Results & Data Results & Data ([facility]) Vital Signs (Past 12 Hours) Vital Signs Temp Pulse Resp BP Pulse Ox 05/06/20 08:00 36.5 C 70 18 145/95 H 92 PG Care Time/CCT Total # of Minutes Spent Total Time Spent with Patient: Total time spent is greater than 50% in coordination of care (as documented) at patient's floor/unit and/or counseling patient: Coding Level of Care Code 06038 Subseq Hosp Care Lvl 2 Diagnoses Pneumonia due to COVID-19 virus U07.1; J12.82 Polycythemia D75.1 Hepatic steatosis K76.0 Anxiety and depression F41.9; F32.9 DVT prophylaxis Z29.9
[2020-05-06] MEDS: REMDESIVIR 100 MG in SODIUM CHLORIDE 0.9% 230 ML IV SCH (20:30)
[2020-05-06] MEDS: ESCITALOPRAM OXALATE 20 MG TAB PO SCH (21:42)
[2020-05-06] MEDS: GABAPENTIN 300 MG CAP PO SCH (21:42)
[2020-05-07 07:34] LABS: Hematocrit (blood only) 41.6 % (42-52); Hemoglobin 14.6 g/dL (14.0-18.0); Mean Corpuscular Hemoglobin 33.3 pg (25-34); Mean Corpuscular Hgb Conc 35.1 g/dL (32-36); Mean Platelet Volume 10.4 fL (7.4-10.4); Platelet Count 618 K/uL (130-400); RDW Coefficient of Variation 13.5 % (11.5-14.5); Red Blood Count 4.38 M/uL (4.7-6.1)
[2020-05-07 08:02] LABS: Creatinine Clr Calc Pharmacy 98.7 ml/min; Est GFR (African American) 97.3; Est GFR (Non-African American) 83.9
[2020-05-07] MEDS: cefTRIAXone SODIUM 2,000 MG in DEXTROSE 5% 50 ML IV SCH (08:46)
[2020-05-07] MEDS: VITAMIN B COMPLEX TAB PO SCH ×2 (08:47→20:39)
[2020-05-07] MEDS: dexAMETHasone 4 MG TAB PO SCH (08:47)
[2020-05-07] MEDS: SIMETHICONE 80 MG CHEW PO PRN ×2 (08:48→20:47)
[2020-05-07] MEDS: ASCORBIC ACID 500 MG TAB PO SCH ×2 (08:48→20:39)
[2020-05-07] MEDS: ENOXAPARIN INJ 40 MG/0.4 ML SYR SQ SCH (08:49)
--- NOTE | 2020-05-07 14:20 | Hospitalist Progress Note ---
Date of Service May 07, 2020 Assessment & Plan (1) Pneumonia due to COVID-19 virus: Multifocal pneumonia due to COVID-19 virus with hypoxia. Likely has an element of secondary bacterial infection. First symptoms were ~04/24/2020. - Continue dexamethasone 6 mg IV every morning (End date: 05/12/2020). - Continue remdesivir IV per protocol (Last dose on 05/07). - Defer convalescent plasma given 10 days since symptom-onset - Continue ceftriaxone (End date: 05/08) - Finished azithromycin on 05/06 - Nasal cannula oxygen, titrate to keep pulse ox 94 to 95% -> Presently down to 1.5L NC at rest. Improving with exertion too, as he was able to shower and was on/off the O2 with it. Hopefully wean off by tomorrow, but could also do a 2- step for home O2. (2) Polycythemia: Plt up to 547 on 05/05. Likely reactive from Covid/sickness. - On DVT ppx - Monitor (3) Hepatic steatosis: Likely Covid hepatitis. AST 46 and ALT 92 upon admission. - Follow serially -> Normalized by 05/05. (4) Anxiety and depression: No overt symptoms at present. - Continue Lexapro 20 mg p.o. daily, Vyvanse (not getting due to not being on formulary), and gabapentin 600 mg at bedtime (5) DVT prophylaxis: Lovenox 40 mg SQ daily - [place] [employer] recommends normal VTE ppx for Covid patients who are non-ICU status. Admission and Anticipated Discharge Date Admission Date: May 03, 2020 Subjective Stable today. Had some shortness of breath while showering, but was able to rest and allowed it to pass. Otherwise, O2 needs are slowly coming down. Physical Exam Constitutional: WD/WN, vitals as above Eyes: EOM intact bilaterally; no conjunctival abnormality ENMT: external ear and nose normal, oropharynx normal Neck: trachea midline, no thyromegaly normal visual inspection Respiratory: normal respiratory effort, lungs clear to auscultation no respiratory distress Cardiovascular: RRR, no murmur, no edema Gastrointestinal (Abdomen): Inspection/Auscultation: abdomen normal to inspection; abdomen not distended Musculoskeletal: no cyanosis or clubbing, extremities motor strength 5/5 Skin: no rashes, warm and dry Neurologic: moves all extremities and awake Psychiatric: Orientation: alert, oriented to person and cooperative Results & Data Results & Data ([facility]) Vital Signs (Past 12 Hours) Vital Signs Temp Pulse Resp BP Pulse Ox 05/07/20 11:30 36.9 C 104 H 18 111/65 93 05/07/20 08:40 37.0 C 86 18 130/81 92 PG Care Time/CCT Total # of Minutes Spent Total Time Spent with Patient: Total time spent is greater than 50% in coordination of care (as documented) at patient's floor/unit and/or counseling patient: Coding Level of Care Code 60458 Subseq Hosp Care Lvl 2 Diagnoses Pneumonia due to COVID-19 virus U07.1; J12.82 Polycythemia D75.1 Hepatic steatosis K76.0 Anxiety and depression F41.9; F32.9 DVT prophylaxis Z29.9
[2020-05-07] MEDS: REMDESIVIR 100 MG in SODIUM CHLORIDE 0.9% 230 ML IV SCH (20:39)
[2020-05-07] MEDS: GABAPENTIN 300 MG CAP PO SCH (20:40)
[2020-05-07] MEDS: ESCITALOPRAM OXALATE 20 MG TAB PO SCH (20:40)
[2020-05-07] MEDS: SODIUM CHLORIDE 0.9% 10ML FLUSH IV SCH (22:15)
[2020-05-08] MEDS: ASCORBIC ACID 500 MG TAB PO SCH (08:00)
[2020-05-08] MEDS: cefTRIAXone SODIUM 2,000 MG in DEXTROSE 5% 50 ML IV SCH (08:00)
[2020-05-08] MEDS: dexAMETHasone 4 MG TAB PO SCH (08:01)
[2020-05-08] MEDS: ENOXAPARIN INJ 40 MG/0.4 ML SYR SQ SCH (08:01)
[2020-05-08] MEDS: VITAMIN B COMPLEX TAB PO SCH (08:02)
[2020-05-08] MEDS: SIMETHICONE 80 MG CHEW PO PRN (09:21)
--- NOTE | 2020-05-08 17:04 | Discharge Summary ---
Date of Service May 08, 2020 Admission HPI Per Admitting Provider The patient is a 54-year-old male with a past medical history including depression, and anxiety, who presents with the symptoms above. He reports that his son was initially tested positive for COVID-19 on 04/17/2020, his developed symptoms and tested positive several days later, and then he developed symptoms as noted above. Work-up in the emergency department included the following abnormal laboratories: AST 46, ALT 92, albumin 2.8, WBC 12.99, platelets 474, and COVID- [address] angiography was significant for multifocal pneumonia and fatty liver. Patient was noted to be hypoxic, with room air pulse ox 88% upon arrival. Principal Diagnosis Covid-19 pneumonia Discharge Exam Constitutional WD/WN, vitals as above Eyes EOM intact bilaterally; no conjunctival abnormality ENMT external ear and nose normal, oropharynx normal Neck trachea midline, no thyromegaly normal visual inspection Respiratory normal respiratory effort, lungs clear to auscultation no respiratory distress Cardiovascular RRR, no murmur, no edema Gastrointestinal (Abdomen) Inspection/Auscultation: abdomen normal to inspection; abdomen not distended Musculoskeletal no cyanosis or clubbing, extremities motor strength 5/5 Skin no rashes, warm and dry Neurologic moves all extremities and awake Psychiatric Orientation: alert, oriented to person and cooperative Discharge Data Allergies Allergy/AdvReac Type Severity Reaction Status Date / Time codeine AdvReac Unknown GI SYMPTOMS Verified 05/03/20 19:08 Ordered Studies 05/03/20 18:48 CT angio chest PE protocol Stat Hospital Course (1) Pneumonia due to COVID-19 virus: Multifocal pneumonia due to COVID-19 virus with hypoxia. Likely has an element of secondary bacterial infection. First symptoms were ~04/24/2020. - Continue dexamethasone 6 mg IV every morning (End date: 05/12/2020). - Continue remdesivir IV per protocol (Last dose on 05/07). - Defer convalescent plasma given 10 days since symptom-onset - Continue ceftriaxone (End date: 05/08) - Finished azithromycin on 05/06 - Nasal cannula oxygen, titrate to keep pulse ox 94 to 95% -> By discharge, was on room air. Discharged on last 5 days of dexamethasone. (2) Polycythemia: Plt up to 547 on 05/05. Likely reactive from Covid/sickness. - On DVT ppx - Monitor -> Can recheck with PCP in 2 weeks to see if resolved. (3) Hepatic steatosis: Likely Covid hepatitis. AST 46 and ALT 92 upon admission. - Follow serially -> Normalized by 05/05. (4) Anxiety and depression: No overt symptoms at present. - Continue Lexapro 20 mg p.o. daily, Vyvanse (not getting due to not being on formulary), and gabapentin 600 mg at bedtime (5) DVT prophylaxis: Lovenox 40 mg SQ daily - [place] [employer] recommends normal VTE ppx for Covid patients who are non-ICU status. Total Time Total Time Spent Total Time Spent (In Minutes): 35 Discharge Plan Discharge Items Patient Disposition: Home - Self-Care Reason For Visit: COVID-19 PNEUMONIA WITH HYPOXIA Discharge Diagnosis: Covid-19 pneumonia Activity: Resume your previous activity Non-emergency contact: Primary Care Provider Call non-emergency contact if: your symptoms worsen Follow-up/Referrals: Victorino Sun, [Outside Practitioners] - 05/14/20 8:30 am (You have an appt with your PCP on 05/14 @ 0830am. Please arrive 15 minutes prior to your appt. It is important that you keep this appt, if for any reason this appt does not fit your schedule please call [phone] to reschedule ) Diet: Regular Addtl Attending Provider Instructions: You were admitted to the hospital with Covid-19 pneumonia. We treated you with all the currently available therapies including steroids and remdesivir. We also treated you with antibiotics in case any bacteria in the lungs was playing a role. You have 5 more days of dexamethasone which can be taken by mouth. The next dose should be tomorrow morning, then daily after that. You needed oxygen for most of your stay, but were able to come off prior to discharge. Please use your home pulse oximeter and monitor your oxygen levels at home. If you dip below 90%, it is time to take a short rest and let yourself recover. If you go below 90% and stay there even after a few minutes of resting, please call your doctor or come to the hospital. You are already past your isolation period as your symptoms began around April 24, 2020. Feel free to return to work on May 21, 2020 or earlier if your activity tolerance is improving. Please call your doctor or come to the hospital if you have worsening shortness of breath, start having high fevers (> 101), chest pain, palpitations, lightheadedness, dizziness, or other concerning symptoms. Pending Studies at Discharge: No Stand-Alone Forms: My [facility], Work/School Release (Inpt), Smoking Cessation Medications and DC Order Prescriptions: New albuterol sulfate [Ventolin HFA] 90 mcg/actuation Hfa Aerosol Inhaler 2 puff inhalation Q6H PRN (Reason: shortness of breath or wheezing) Qty: 6.7 RF: 0 dexamethasone 6 mg tablet 6 mg PO DAILY Qty: 5 RF: 0 benzonatate [Tessalon Perles] 100 mg Capsule 100 mg PO TID PRN (Reason: cough) Qty: 20 RF: 0 Continued ascorbic acid (vitamin C) 500 mg tablet 500 mg PO BID RF: 0 coenzyme Q10 100 mg capsule 100 mg PO BID RF: 0 vitamin E succinate 400 unit tablet 400 units PO BID RF: 0 cinnamon bark [Cinnamon] 500 mg capsule 500 mg PO BID RF: 0 vitamin B complex Tablet Extended Release 1 tab PO BID RF: 0 Salma Root Tab 500 mg PO BID RF: 0 gabapentin [Neurontin] 300 mg capsule 600 mg PO HS RF: 0 diclofenac sodium 75 mg tablet,delayed release (DR/EC) 75 mg PO BID PRN (Reason: Pain) RF: 0 grape seed extract 50 mg Capsule 150 mg PO BID RF: 0 escitalopram oxalate 20 mg tablet 20 mg PO DAILY RF: 0 Vyvanse 60 mg capsule 60 mg PO DAILY RF: 0 Discharge Orders: Discharge Order (Routine); Ordered 05/08/20 Ordered By: Alberto Aviles Admission Data Admit Date/Time: 05/03/20 22:52 Attending Provider: Alberto Aviles Admit Provider: Oneil Diaz Primary Care Provider: PCP,NO Other Interventions: Discharge Summary Assessment (RN) Last Done: 05/08/20 10:39 Coding Level of Care Code D/C Day Management >30 mins Diagnoses Pneumonia due to COVID-19 virus U07.1; J12.82 Polycythemia D75.1 Hepatic steatosis K76.0 Anxiety and depression F41.9; F32.9 DVT prophylaxis Z29.9
== END 2020-05-08 17:33 | disposition home or self-care (01) | DRG 177 ==
LOC: ED 18:07 → 2W 22:52 → SUATTDRO 22:52 → 2W 05-04 00:43